=== PATIENT | male | born 1990 | race Caucasian/White ===

== ENCOUNTER 2018-03-10 23:41 | Emergency (ER) | payer OTHER, SELFPAY ==
[2018-03-11] MEDS ORDERED: Penicillin V Potassium 250 MG TAB ONE (00:24)
[2018-03-11] MEDS ORDERED: traMADol HCl 50 MG TAB ONE (00:24)
== END 2018-03-11 00:32 | disposition home or self-care (01) ==
LOC: MADERS 23:41
DX: K04.7 Periapical abscess without sinus (principal); F17.210 Nicotine dependence, cigarettes, uncomplicated
CPT/HCPCS: 99282

== ENCOUNTER 2019-01-22 15:33 | Emergency (ER) | payer SELFPAY ==
[2019-01-22] MEDS ORDERED: Lidocaine 1% w/Epinephrine 1:100K 20 ML VIAL ONE (15:38)
--- NOTE | 2019-01-22 16:14 | CT ---
EXAM: CT brain without contrast HISTORY: Trauma with headache COMPARISON: None TECHNIQUE: Multiple contiguous axial images were obtained and a CT of the brain without contrast. Sag ittal and coronal reformats were performed. FINDINGS: The brain is normal in morphology and attenuation without focal lesions or confluent areas of infarction. There is no evidence of hydrocephalus, intracranial hemorrhage, or extra-axial fluid collection. The calvarium and overlying soft tissues are unremarkable. The visualized paranasal sinuses and masto id air cells are well aerated. IMPRESSION: No evidence of acute intracranial abnormality
--- NOTE | 2019-01-22 16:17 | RAD ---
RIGHT FOREARM TWO VIEWS: INDICATIONS: History of trauma of the right forearm. Pain. COMPARISON: None. FINDINGS: No acute fracture or subluxation is evident. Soft tissue is normal appearing. IMPRESSION: No acute osseous abnormality. POS: OFF
== END 2019-01-22 16:35 | disposition home or self-care (01) ==
LOC: MADERS 15:33
DX: S01.01XA Laceration without foreign body of scalp, initial encounter (principal); S50.11XA Contusion of right forearm, initial encounter; F17.210 Nicotine dependence, cigarettes, uncomplicated; W20.8XXA Other cause of strike by thrown, projected or falling object, initial encounter
CPT/HCPCS: 12001; 70450

== ENCOUNTER 2021-06-09 02:23 | Emergency (ER) | payer SELFPAY ==
[2021-06-09] MEDS ORDERED: Tetracaine 0.5% PF 4 ML BOT ONE (02:36)
[2021-06-09] MEDS ORDERED: Tobramycin Sulfate 0.3% Ophth Susp 5 ml Bottle ONE (02:44)
[2021-06-09] MEDS ORDERED: Ibuprofen 800 MG TAB ONE (02:55)
== END 2021-06-09 03:05 | disposition home or self-care (01) ==
LOC: MADERS 02:23
DX: T26.12XA Burn of cornea and conjunctival sac, left eye, initial encounter (principal); T26.11XA Burn of cornea and conjunctival sac, right eye, initial encounter; F17.210 Nicotine dependence, cigarettes, uncomplicated; X17.XXXA Contact with hot engines, machinery and tools, initial encounter
CPT/HCPCS: 99283

== ENCOUNTER 2021-06-12 21:05 | Emergency (ER) | payer SELFPAY | END 2021-06-12 21:42 | disposition left against medical advice (07) | LOC: MADERS 21:05 | DX: Z53.21 Procedure and treatment not carried out due to patient leaving prior to being seen by health care provider (principal) ==

== ENCOUNTER 2021-07-06 22:18 | Emergency (ER) | payer SELFPAY ==
[2021-07-06] MEDS ORDERED: Tetracaine 0.5% PF 4 ML BOT ONE (22:24)
== END 2021-07-06 23:15 | disposition home or self-care (01) ==
LOC: MADERS 22:18
DX: H16.133 Photokeratitis, bilateral (principal)
CPT/HCPCS: 99283

== ENCOUNTER 2021-09-28 12:08 | Emergency (ER) | payer SELFPAY ==
[~2021-09-28 12:08] MED LIST: Sodium Chloride 0.9% 1,000 ML BAG ONE
[2021-09-28 12:38] LABS: #Basophils 0.1 thou/uL (0.0-0.2); #Eosinphils 0.1 thou/uL (0.0-0.7); #Lymphocytes 2.2 thou/uL (1.20-3.40); #Monocytes 0.7 thou/uL (0.11-0.59); #Neutrophils 6.7 thou/uL (1.40-6.50); %Basophils 0.8 % (0.0-1.0); %Eosinophils 0.6 % (0.0-10.0); %Lymphocytes 22.2 % (21.0-51.0); %Monocytes 7.4 % (0.0-10.0); Hemoglobin 12.8 g/dL (14.0-18.0); Mean Corpuscular HGB CONC 32.5 g/dL (32.0-36.0); Mean Corpuscular Hemoglobin 28.2 pg (27.0-31.0); Mean Corpuscular Volume 86.8 fL (78.0-98.0); Mean Platelet Volume 7.9 fL (7.4-10.4); Platelet Count 182 thou/uL (130-400); RBC Distribution Width 12.5 % (11.5-14.5); Red Blood Cell (RBC) Count 4.53 mill/uL (4.70-6.10); White Blood Cell (WBC) Count 9.8 thou/uL (4.8-10.8)
[2021-09-28 12:56] LABS: Acetaminophen Less than 10.0 mcg/mL (10.0-30.0); Alcohol Less than 10 mg/dL (Less than 10); Salicylate Less than 8.0 mg/dL (15.0-30.0)
[2021-09-28 12:58] LABS: ALT (SGPT) 18 U/L (8-55); AST (SGOT) 19 U/L (5-34); Albumin 4.1 g/dL (3.5-5.0); Alkaline Phosphatase 78 U/L (40-110); Anion Gap 12 mmol/L (10-20); BUN (Urea Nitrogen) 22 mg/dL (8.9-20.6); Bilirubin, Total 0.6 mg/dL (0.2-1.2); Calc. Creatinine Clearance 0 mL/min (70-130); Calcium 8.8 mg/dL (7.8-10.44); Carbon Dioxide 25 mmol/L (22-29); Chloride 107 mmol/L (98-107); Estimated GFR 118; Globulin 2.2 g/dL (2.4-3.5); Glucose 95 mg/dL (70-105); Magnesium 2.1 mg/dL (1.6-2.6); Potassium 4.4 mmol/L (3.5-5.1); Protein, Total 6.3 g/dL (6.0-8.3); Sodium 140 mmol/L (136-145)
[2021-09-28 13:54] LABS: Bilirubin Negative (Negative); Blood, Urine Moderate (Negative); Clarity Clear (Clear); Glucose, Urine (Dipstick) Negative (Negative); Ketone, Urine Negative (Negative); Leukocyte Negative (Negative); Nitrite Negative (Negative); Protein, Urine (Dipstick) Negative (Neg-Trace); Urobilinogen 0.2 mg/dL (Less than 2)
[2021-09-28 13:58] LABS: Specific Gravity, Urine 1.025 (1.002-1.036)
[2021-09-28 14:03] LABS: Bacteria/HPF Rare-Few HPF (None Seen); RBC/HPF 0-3 HPF (0-3); Squamous Epithelial 0-3 HPF (0-3); WBC/HPF 0-3 HPF (0-3)
[2021-09-28 14:04] LABS: Mucous/LPF 1+ LPF (<2+)
[2021-09-28 14:05] LABS: Amphetamine Detected (NotDetected); Benzodiazepine Screen Not Detected (NotDetected); Cocaine Metabolite Screen Not Detected (NotDetected); Methadone Not Detected (NotDetected); Methamphetamine Detected (NotDetected); Opiate Screen Not Detected (NotDetected); Phencyclidine (PCP) Not Detected (NotDetected); THC/Cannabinoid Screen Detected (NotDetected); Tricyclic Screen Not Detected (NotDetected)
[2021-09-28 14:06] LABS: Barbiturates Screen Not Detected (NotDetected); Medtox Control Line Valid? VALID (VALID); Oxycodone Screen Not Detected (NotDetected)
[2021-09-28] MEDS ORDERED: Sodium Chloride 0.9% 1,000 ML ONE (19:49)
[2021-09-28] MEDS ORDERED: Naloxone HCl 0.4 mg/ml Vial ONE (21:31)
== END 2021-09-29 01:19 | disposition short-term general hospital (02) ==
LOC: MADERS 12:08
DX: R41.82 Altered mental status, unspecified (principal); I95.9 Hypotension, unspecified; R00.1 Bradycardia, unspecified
CPT/HCPCS: 51701; 70450; 71045; 80053; 80306; 80307; 81003; 81015; 83735; 84484; 85025; 93005; 94760; 96361; 96374; 96375; J1610; J2310; J7050

== ENCOUNTER 2023-04-28 09:45 | Emergency (ER) | payer SELFPAY ==
[2023-04-28] MEDS ORDERED: Ibuprofen 600 MG TAB ONE (10:15)
[2023-04-28] MEDS ORDERED: Bacitracin 1 PK ONE (11:21)
== END 2023-04-28 12:15 | disposition home or self-care (01) ==
LOC: MADERS 09:45
DX: S61.032A Puncture wound without foreign body of left thumb without damage to nail, initial encounter (principal); F17.290 Nicotine dependence, other tobacco product, uncomplicated; W29.8XXA Contact with other powered hand tools and household machinery, initial encounter